=== PATIENT | male | born 1965 | race Native Hawaiian/Other Pacific Islander ===

== ENCOUNTER 2022-02-15 20:11 | Emergency (ER) | payer OTHER ==
[~2022-02-15] VITALS: Ht 193 cm; Wt 101.6 kg
[2022-02-15 20:32] LABS: PLATELET COUNT 159 K/uL (142-355)
[2022-02-15 20:42] LABS: POTASSIUM 4.1 mmol/L (3.6-5.2)
[2022-02-15 21:35] VITALS: BP 165/85; TEMP 98.5
[2022-02-15] MEDS ORDERED: POTA10CA3 PO (22:30)
[2022-02-15] MEDS ORDERED: MULTIVITAMIN AD1 TA2 PO (22:31)
[2022-02-15] MEDS ORDERED: FINA5TAB2 PO (22:32)
[2022-02-15] MEDS ORDERED: ASPIR-LOW81 MG PO (22:32)
[2022-02-15] MEDS ORDERED: METO-837 PO (22:33)
[2022-02-15] MEDS ORDERED: FURO20TA67 PO (22:34)
[2022-02-15] MEDS ORDERED: KEPPRA750 MG PO (22:35)
[2022-02-15] MEDS ORDERED: TAMS0.4C PO (22:35)
[2022-02-15] MEDS ORDERED: ELIQUIS5 MG PO (22:36)
[2022-02-15] MEDS ORDERED: TYLENOL325 MG PO (22:37)
== END 2022-02-15 21:35 | disposition still patient (30) ==
LOC: ED 20:11
PROVIDERS: Emergency Medicine
DX: R45.1 Restlessness and agitation (principal); I69.851 Hemiplegia and hemiparesis following other cerebrovascular disease affecting right dominant side; I69.820 Aphasia following other cerebrovascular disease; N28.9 Disorder of kidney and ureter, unspecified; Z11.52 Encounter for screening for COVID-19; Z04.6 Encounter for general psychiatric examination, requested by authority
CPT/HCPCS: 36415; 80053; 81000; 85027; 87635; 93005; 99283; U0003